=== PATIENT | female | born 1970 | race American Indian/Alaskan Native ===

== ENCOUNTER 2017-09-16 23:49 | Emergency (ER) | payer SELFPAY ==
[2017-09-16 23:57] VITALS: RESP 16; O2SAT 100
[2017-09-17 03:42] LABS: EOS % 1.1 % (0.0-4.0); HEMOGLOBIN 12.2 g/dL (12.0-16.0); LYMPH # 2.3 K/uL (1.0-4.3); LYMPH % 54.2 % (20.0-40.0); MEAN CELL VOLUME 94.8 fl (81.0-99.0); MEAN CORPUSCULAR HEMOGLOBIN 32.3 pg (27.0-31.0); MEAN CORPUSCULAR HGB CONC 34.1 g/dL (33.0-37.0); MONO # 0.5 K/uL (0.0-0.8); MONO % 12.2 % (0.0-10.0); NEUT # 1.3 K/uL (1.8-7.0); NEUT % 31.5 % (50.0-75.0); NRBC % 0.2 % (0.0-0.0); RBC 3.77 Mil/uL (3.80-5.20); WHITE BLOOD COUNT 4.3 K/uL (4.8-10.8)
[2017-09-17 03:59] LABS: CALCIUM 9.4 mg/dL (8.4-10.2); GFR AFRICAN-AMERICAN > 60; GFR NON-AFRICAN AMERICAN > 60
--- NOTE | 2017-09-17 04:20 | CT ---
EXAM: CT Head Without Intravenous Contrast CLINICAL HISTORY: 47 years old, female; Injury or trauma; Fall; Initial encounter; Blunt trauma (contusions or hematomas); Consciousness not specified; Additional info: Head trauma TECHNIQUE: Axial computed tomography images of the head/brain without intravenous contrast. All CT scans at this facility use one or more dose reduction techniques, viz.: automated exposure control; ma/kV adjustment per patient size (including targeted exams where dose is matched to indication; i.e. head); or iterative reconstruction technique. Coronal and sagittal reformatted images were created and reviewed. COMPARISON: No relevant prior studies available. FINDINGS: Brain: No intracranial hemorrhage. No mass. No edema. Ventricles: No hydrocephalus. Bones/joints: No acute fracture. Soft tissues: Unremarkable. Sinuses: No acute sinusitis. Mastoid air cells: No mastoid effusion. Orbits: Unremarkable as visualized. IMPRESSION: 1. No intracranial hemorrhage.
--- NOTE | 2017-09-17 04:35 | ED PDOC ---
HPI: Head Injury Time Seen by Provider: 09/17/17 02:12 Chief Complaint (Nursing): Trauma Chief Complaint (Provider): Head injury History Per: Patient, Family History/Exam Limitations: no limitations Injury Occurred (Timing): Just Before Arrival Patient States: Fell Striking Head Additional Complaint(s): 47yo female, presents to ED accompanied by her fiance, for evaluation after she fell of a chair and injured her head 30 minutes [employer]. Per her fiance, the patient was sitting on a chair, laughing when she lost her equilibruim, fell to the side and injrued her head. She also reports for the past month, she has had a right sided headache. Patient has a history of seizures and has been prescribed clonazepam (sometimes prescribed by her neurologist and other times by her psychiatrist). patient states she moved to [place] 1 year ago but had to go back to [place] 6 months later as her dad had ; patient returned to [place] this week. Patient has a bottle of Clonazepam with her, filled on 08.27.17 but the bottle is written for Clarissa Cervantes which she states is her maiden name. Patient denies any fever, chest pain, dizziness, shortness of breath, nausea or vomiting. No other complaints. Past Medical History Reviewed: Historical Data, Nursing Documentation, Vital Signs Vital Signs: Last Vital Signs Temp 97.0 F L 09/16/17 23:55 Pulse 65 09/16/17 23:55 Resp 16 09/16/17 23:55 BP 122/76 09/16/17 23:55 Pulse Ox 100 09/16/17 23:55 - Medical History PMH: HTN, Seizures - Surgical History Surgical History: No Surg Hx - Family History Family History: States: No Known Family Hx - Allergies Allergies/Adverse Reactions: Allergies Allergy/AdvReac Type Severity Reaction Status Date / Time ketorolac [From Toradol] Allergy RASH Verified 09/16/17 23:55 metoclopramide [From Reglan] Allergy RASH Verified 09/16/17 23:55 Review of Systems ROS Statement: Except As Marked, All Systems Reviewed And Found Negative Constitutional: Negative for: Fever, Chills Cardiovascular: Negative for: Chest Pain Respiratory: Negative for: Shortness of Breath Gastrointestinal: Negative for: Nausea, Vomiting Neurological: Positive for: Other (head injury). Negative for: Dizziness Physical Exam - Reviewed Nursing Documentation Reviewed: Yes Vital Signs Reviewed: Yes - Physical Exam Comments: GENERAL APPEARANCE: Patient is awake, alert, oriented x 3, in no acute distress. SKIN: Warm, dry; (-) cyanosis; (-) rash. HEAD: (-) scalp swelling or tenderness, (-) temporal artery tenderness. EYES: (-) conjunctival pallor, (-) scleral icterus. ENMT: (-) sinus tenderness; mucous membranes dry. NECK: (-) tenderness, (-) stiffness, (-) meningismus, (-) lymphadenopathy. CHEST AND RESPIRATORY: (-) rales, (-) rhonchi, (-) wheezes; breath sounds equal bilaterally. HEART AND CARDIOVASCULAR: (-) irregularity; (-) murmur, (-) gallop. ABDOMEN AND GI: Soft; (-) tenderness. EXTREMITIES: (-) deformity. NEURO AND PSYCH: Mental status as above. rn clinical research: Pupils equal and reactive; EOMI ; (-) facial asymmetry; tongue and uvula midline. Strength symmetric. Babinski normal bilaterally. - Laboratory Results Result Diagrams: 09/17/17 03:35 09/17/17 03:35 - ECG O2 Sat by Pulse Oximetry: 100 (RA) Pulse Ox Interpretation: Normal Medical Decision Making Medical Decision Making: Impression: Head injury Plan: -- CMP -- CBC -- CT Head w.o contrast -- Tyleno 975 mg PO Labs reviewed. CT head : FINDINGS: Brain: No intracranial hemorrhage. No mass. No edema. Ventricles: No hydrocephalus. Bones/joints: No acute fracture. Soft tissues: Unremarkable. Sinuses: No acute sinusitis. Mastoid air cells: No mastoid effusion. Orbits: Unremarkable as visualized. IMPRESSION: 1. No intracranial hemorrhage. Dictated and Authenticated by: Jeremy Wade MD 09/17/2017 4:20 AM Eastern Time ([place] & [place]) On re-evaluation, patient denies any headache, dizziness, or nausea. She is requesting for a Rx refill of her clonazepam. She is also requesting for pain medication, for her R sided neck pain. On exam, patient remains AAOx3, in no acute distress, repeat neuro exam shows no focal findings. Diagnostic results d/w the patient in great detail. Patient advised that the ER can not Rx her a refill as she recently obtained one form her pmd from [place] on 08/30/17 and received #60 tablets, that Rx was min written under a different name Clarissa Cervantes. Patient offered flexeril, which she refused because it makes her shaky, offered tramadol, she refused because it doesn't work. Based on history, exam and diagnostic results, plan will be for outpatient follow up. Patient instructed to follow-up with referral provided or the clinic in 1-2 days without fail. Return to the emergency room at any time for any new or worsening symptoms. Patient states she fully agrees with and understands discharge instructions. States that she agrees with the plan and disposition. Verbalized and repeated discharge instructions and plan. I have given the patient opportunity to ask any additional questions. Scribe Attestation: Documented by Abbi Humphreys acting as a scribe for CRISTINA Paniagua. Provider Attestation: All medical record entries made by the Scribe were at my direction and personally dictated by me. I have reviewed the chart and agree that the record accurately reflects my personal performance of the history, physical exam, medical decision making, and the department course for this patient. I have also personally directed, reviewed, and agree with the discharge instructions and disposition. Disposition - Clinical Impression Clinical Impression: Head injury - Patient ED Disposition Is Patient to be Admitted: No - Disposition Referrals: [facility] [Outside] Rogers Avalos MD [Medical Doctor] - Disposition: Routine/Home Disposition Time: 06:00 Condition: STABLE Instructions: Closed Head Injury (DC) Forms: [employer] (Spanish) - PA / BRICKLAYER APPRENTICE / Resident Statement MD/ has reviewed & agrees with the documentation as recorded.
[2017-09-17 05:41] VITALS: BP 108/66; PULSE 61; TEMP 97.3
[2017-09-17 06:44] LABS: ALB/GLOB RATIO 1.2 (1.0-2.1); ALBUMIN 4.5 g/dL (3.5-5.0); ALT/SGPT 35 U/L (9-52); AST/SGOT 43 U/L (14-36); BLOOD UREA NITROGEN 12 mg/dl (7-17)
== END 2017-09-17 06:20 | disposition home or self-care (01) ==
LOC: H.ER 23:49
DX: S09.90XA Unspecified injury of head, initial encounter (principal); W19.XXXA Unspecified fall, initial encounter; Y92.89 Other specified places as the place of occurrence of the external cause; I10 Essential (primary) hypertension; Z86.69 Personal history of other diseases of the nervous system and sense organs